=== PATIENT | male | born 1940 | race Caucasian/White ===

== ENCOUNTER 2022-11-26 10:01 | Emergency (ER) | payer MEDICARE, BC ==
[~2022-11-26] VITALS: Ht 172.7 cm; Wt 75.0 kg
[2022-11-26] MEDS ORDERED: METFORMIN HCL500 M1 PO (10:45)
[2022-11-26] MEDS ORDERED: JANUVIA100 MG PO (10:45)
[2022-11-26] MEDS ORDERED: PRAMIPEXOLE DIHY1 MG PO (10:45)
[2022-11-26] MEDS ORDERED: FAMOTIDINE20 M1 PO (10:46)
[2022-11-26] MEDS ORDERED: CARVEDILOL3.125 MG PO (10:46)
[2022-11-26] MEDS ORDERED: MONTELUKAST SOD10 MG PO (10:47)
[2022-11-26] MEDS ORDERED: FLUOXETINE10 M2 PO (10:47)
[2022-11-26] MEDS ORDERED: SIMVASTATIN10 MG PO (10:47)
[2022-11-26] MEDS ORDERED: HYDROCHLOROT25 MG PO (10:48)
[2022-11-26] MEDS ORDERED: ENALAPRIL2.5 MG PO (10:48)
[2022-11-26] MEDS ORDERED: GLIMEPIRIDE2 MG PO (10:48)
[2022-11-26] MEDS ORDERED: FLEXERIL5 M1 PO (10:49)
[2022-11-26] MEDS ORDERED: MELOXICAM7.5 MG PO (10:49)
[2022-11-26] MEDS ORDERED: OMEPRAZOLE20 MG PO (10:49)
[2022-11-26 13:11] LABS: BASO% 0.2 % (0-3); HEMATOCRIT 33.9 % (39.0-50.0); IMMATURE GRANULOCYTES 0.1 % (0.0-5.0); LYMPH% 9.1 % (15-41); MEAN CELL VOLUME 93.6 fL CALC (80.0-100.0); MEAN CORPUSCULAR HGB 30.4 pG CALC (26.0-32.0); MEAN CORPUSCULAR HGB CONC 32.4 g/dL CAL (32.0-36.0); MONO% 6.6 % (2-13); NEUT# 8.16 thou/uL (1.82-7.42); RED BLOOD COUNT 3.62 mill/uL (4.70-6.10)
[2022-11-26 13:13] LABS: URINE BILIRUBIN - DIPSTICK NEGATIVE (NEGATIVE); URINE BLOOD DIPSTICK NEGATIVE (NEGATIVE); URINE COLOR YELLOW; URINE GLUCOSE - DIPSTICK NEGATIVE (NEGATIVE); URINE KETONE TRACE mg/dL (NEGATIVE); URINE LEUK ESTERASE NEGATIVE (NEGATIVE); URINE PROTEIN - DIPSTICK NEGATIVE (NEG-TRACE); URINE SPECIFIC GRAVITY 1.025; URINE UROBILINOGEN - DIPSTICK 0.2 E.U./dL (0.2)
[2022-11-26 13:27] LABS: ALKALINE PHOSPHATASE 80 u/l (38-126); ANION GAP 10 (6-22 (CALC)); BILIRUBIN, TOTAL 0.2 mg/dL (0.2-1.3); BUN 23 mg/dL (8-23); BUN/CREATININE RATIO 26 (12-20 (CALC)); CARBON DIOXIDE 28 mmol/l (22-30); CHLORIDE 101 mmol/l (95-108); CREATININE 0.9 mg/dL (0.7-1.3); GFR FOR AFR.AMER. > 60 ML/MIN (>=60 (CALC)); GFR OTHER RACES > 60 ML/MIN (>=60 (CALC)); POTASSIUM 4.3 mmol/l (3.5-5.1); SGOT/AST 32 u/l (19-48); SODIUM 135 mmol/l (137-146); TOTAL PROTEIN 6.7 g/dL (6.3-8.2)
[2022-11-26 13:28] LABS: URINE NITRITE - DIPSTICK NEGATIVE (Negative)
[2022-11-26 14:31] VITALS: BP 122/69
== END 2022-11-26 14:45 | disposition home or self-care (01) ==
LOC: ED 10:01
PROVIDERS: Emergency Medicine
DX: R41.82 Altered mental status, unspecified (principal); E11.9 Type 2 diabetes mellitus without complications; F17.200 Nicotine dependence, unspecified, uncomplicated; Z79.84 Long term (current) use of oral hypoglycemic drugs; Z20.822 Contact with and (suspected) exposure to COVID-19